=== PATIENT | male | born 1970 | race African-American/Black ===

== ENCOUNTER 2022-01-24 19:45 | Inpatient (IN) ==
[2022-01-24] MEDS ORDERED: ASPIRIN 325 MG TABLET PO STA (20:59)
[2022-01-24] MEDS ORDERED: MORPHINE 2 MG/1 ML SYRINGE IV ONE ×2 (20:59→21:46)
[2022-01-24] MEDS ORDERED: ONDANSETRON ODT 4 MG TABLET PO STA (20:59)
[2022-01-24] MEDS ORDERED: NITROGLYCERIN 2% OINT 1 INCH/GM PACK TOP STA (20:59)
[2022-01-24] MEDS ORDERED: FUROSEMIDE 40 MG/4 ML VIAL IV STA ×2 (20:59→21:19)
[2022-01-24 21:09] LABS: Basophils # 0.1 10*3/uL (0.0-0.2); Basophils % 0.7 % (0.0-0.8); Eosinophils % 0.3 % (0.00-10.9); Hematocrit 55.3 VOL% (42.0-52.0); Hemoglobin 17.3 GM/DL (14.0-18.0); Immature Granulocytes % 0.8 %; Immature Granulocytes Absolute 0.06 #; Lymphocytes # 3.5 10*3/uL (1.4-4.0); Lymphocytes % 47.2 % (21.2-54.2); Mean Corpuscular HGB Conc 31.3 GM/DL (32-36); Mean Corpuscular Volume 84.3 FL (87-102); Mean Platelet Volume 11.7 FL (9.6-12.0); Monocytes # 0.4 10*3/uL (0.11-0.8); Monocytes % 5.9 % (1.7-12.7); Neutrophils % 45.1 % (38.7-73.9); Platelet Count 285 T/CUMM (130-400); Red Blood Count 6.56 MC/CUMM (3.8-5.5); Red Cell Distribution Width 15.4 % (9.3-17.3); White Blood Count 7.3 T/CUMM (4-12)
[2022-01-24 21:21] LABS: INR 1.2; PT Patient Result 12.7 SECS (10.1-12.1)
[2022-01-24 21:28] LABS: Albumin 3.9 G/DL (3.4-5.0); Bilirubin,Total 1.5 MG/DL (0.20-1.00); Calcium 9.1 MG/DL (8.5-10.1); Osmolality,Calculated 289.4 MOS/KG (273-304); Potassium 5.1 MMOL/L (3.5-5.1); Total Protein 7.4 G/DL (6.4-8.2)
[2022-01-24 21:33] LABS: Arterial Base Excess iSTAT -6 MMOL/L (-2.5-2.5); Arterial Bicarbonate iSTAT 15.7 MMOL/L (20-26); Arterial O2 Saturation iSTAT 79 % (95-100); Arterial PCO2 iSTAT 23 MM HG (35-48); Arterial PO2 iSTAT 40 MM HG (80-95); Arterial Total CO2 iSTAT 16 MMO/L (23-27); Arterial pH iSTAT 7.433 (7.35-7.45)
[2022-01-24 21:46] LABS: Arterial Base Excess iSTAT -5 MMOL/L (-2.5-2.5); Arterial Bicarbonate iSTAT 17.2 MMOL/L (20-26); Arterial O2 Saturation iSTAT 80 % (95-100); Arterial PCO2 iSTAT 26 MM HG (35-48); Arterial PO2 iSTAT 42 MM HG (80-95); Arterial Total CO2 iSTAT 18 MMO/L (23-27); Arterial pH iSTAT 7.422 (7.35-7.45)
[2022-01-24] MEDS ORDERED: MAGNESIUM SULF RIDER 4 GM/100 ML PREMIX IV PRN (22:00)
[2022-01-24] MEDS ORDERED: ONDANSETRON 4 MG/2 ML VIAL IV PRN (22:00)
[2022-01-24] MEDS ORDERED: MAGNESIUM SULF RIDER 2 GM/50 ML PREMIX IV PRN (22:00)
[2022-01-24] MEDS ORDERED: METOPROLOL TARTRATE 5 MG/5 ML VIAL IV ONE (22:16)
[2022-01-24] MEDS ORDERED: METOPROLOL TARTRATE 5 MG/5 ML VIAL IV STA (22:17)
[2022-01-24] MEDS: NITROGLYCERIN 2% OINT 1 INCH/GM PACK TOP SCH (22:30)
[2022-01-25] MEDS ORDERED: INFLUENZA VIRUS VACCINE 0.5 ML SYRINGE IM ONE (01:26)
[2022-01-25] MEDS: NITROGLYCERIN 2% OINT 1 INCH/GM PACK TOP SCH ×4 (03:40→21:48)
[2022-01-25 04:20] LABS: Barbiturates Screen,Urine Negative (Negative); Benzodiazepines Screen,Urine Negative (Negative); Cannabinoid Screen,Urine Negative (Negative); Opiate Screen,Urine Positive (Negative); Phencyclidine Screen,Urine Negative (Negative)
[2022-01-25] MEDS ORDERED: LEVALBUTEROL 1.25 MG/3 ML NEB RESP TX PRN (05:05)
[2022-01-25 06:53] LABS: Basophils % 0.3 % (0.0-0.8); Eosinophils % 0.2 % (0.00-10.9); Hematocrit 46.6 VOL% (42.0-52.0); Immature Granulocytes % 0.5 %; Immature Granulocytes Absolute 0.03 #; Lymphocytes # 1.7 10*3/uL (1.4-4.0); Mean Corpuscular Volume 83.2 FL (87-102); Mean Platelet Volume 11.5 FL (9.6-12.0); Monocytes # 0.5 10*3/uL (0.11-0.8); Monocytes % 7.1 % (1.7-12.7); Neutrophils % 64.9 % (38.7-73.9); Red Cell Distribution Width 14.5 % (9.3-17.3); White Blood Count 6.5 T/CUMM (4-12)
[2022-01-25 06:58] LABS: Hemoglobin 14.9 GM/DL (14.0-18.0); Platelet Count 219 T/CUMM (130-400)
[2022-01-25 07:28] LABS: Albumin 2.9 G/DL (3.4-5.0); Bilirubin,Total 1.3 MG/DL (0.20-1.00); Calcium 8.3 MG/DL (8.5-10.1); Osmolality,Calculated 294.1 MOS/KG (273-304); Potassium 4.6 MMOL/L (3.5-5.1); Risk Ratio 2.83; Total Protein 5.1 G/DL (6.4-8.2); VLDL Cholesterol 21.6 MG/DL
[2022-01-25] MEDS ORDERED: FUROSEMIDE 40 MG/4 ML VIAL IV SCH (08:00)
[2022-01-25] MEDS ORDERED: ASCORBIC ACID 500 MG TABLET PO SCH (09:00)
[2022-01-25] MEDS ORDERED: ALBUTEROL 2.5 MG/3 ML NEB RESP TX PRN (09:21)
[2022-01-25] MEDS: PANTOPRAZOLE 40 MG TABLET PO SCH (10:08)
[2022-01-25] MEDS: AMIODARONE 200 MG TABLET PO SCH ×2 (10:08→21:47)
[2022-01-25] MEDS: ASPIRIN 325 MG TABLET PO SCH (10:08)
[2022-01-25] MEDS: APIXABAN 5 MG TABLET PO SCH ×2 (10:08→21:47)
[2022-01-25] MEDS: POTASSIUM CHLORIDE 10 MEQ TABLET PO SCH (10:09)
[2022-01-25 10:42] LABS: ABG PCO2 34.3 MM HG (35-48); ABG PH 7.402 (7.35-7.45)
[2022-01-25] MEDS: FUROSEMIDE 40 MG/4 ML VIAL IV SCH ×3 (11:33→21:50)
[2022-01-25] MEDS ORDERED: METOPROLOL SUCCINATE XL 100 MG TABLET PO SCH (11:38)
[2022-01-25] MEDS: MORPHINE 2 MG/1 ML SYRINGE IV PRN ×3 (11:46→22:14)
[2022-01-25] MEDS: MAGNESIUM CHLORIDE 64 MG TABLET PO SCH (13:51)
[2022-01-25] MEDS: PIPERACILLIN/TAZOBACTAM 3,375 MG in SODIUM CHLORIDE 0.9% 100 ML IV SCH ×2 (13:51→21:46)
[2022-01-25] MEDS: ALBUTEROL/IPRATROPIUM 3 ML NEB RESP TX SCH ×3 (15:50→22:37)
[2022-01-25 16:02] LABS: Arterial Base Excess iSTAT -2 MMOL/L (-2.5-2.5); Arterial O2 Saturation iSTAT 94 % (95-100); Arterial PCO2 iSTAT 32 MM HG (35-48); Arterial PO2 iSTAT 67 MM HG (80-95); Arterial Total CO2 iSTAT 22 MMO/L (23-27); Arterial pH iSTAT 7.428 (7.35-7.45)
[2022-01-25] MEDS: VANCOMYCIN INJ 1,500 MG in SODIUM CHLORIDE 0.9% 500 ML IV SCH (18:04)
[2022-01-25] MEDS ORDERED: DILTIAZEM CD 180 MG CAPSULE PO SCH (21:00)
[2022-01-25] MEDS: ATORVASTATIN 10 MG TABLET PO SCH (21:47)
[2022-01-25] MEDS: DILTIAZEM CD 120 MG CAPSULE PO SCH (21:48)
[2022-01-26] MEDS: NITROGLYCERIN 2% OINT 1 INCH/GM PACK TOP SCH ×4 (05:00→22:53)
[2022-01-26] MEDS: PIPERACILLIN/TAZOBACTAM 3,375 MG in SODIUM CHLORIDE 0.9% 100 ML IV SCH ×3 (05:05→20:34)
[2022-01-26 05:51] LABS: Basophils % 0.8 % (0.0-0.8); Eosinophils % 0.8 % (0.00-10.9); Hematocrit 43.3 VOL% (42.0-52.0); Hemoglobin 13.7 GM/DL (14.0-18.0); Immature Granulocytes % 0.3 %; Immature Granulocytes Absolute 0.01 #; Lymphocytes # 2.1 10*3/uL (1.4-4.0); Mean Corpuscular HGB Conc 31.6 GM/DL (32-36); Mean Corpuscular Volume 83.6 FL (87-102); Mean Platelet Volume 10.8 FL (9.6-12.0); Monocytes # 0.3 10*3/uL (0.11-0.8); Monocytes % 7.1 % (1.7-12.7); Platelet Count 175 T/CUMM (130-400); Red Blood Count 5.18 MC/CUMM (3.8-5.5); Red Cell Distribution Width 14.2 % (9.3-17.3)
[2022-01-26 06:15] LABS: Eosinophils 1 % (0-10); Hypochromia Slight; Lymphocytes 47 % (20-55); Microcytosis Slight; Platelet Estimate Adequate; Total Cells Counted 100
[2022-01-26 06:18] LABS: Calcium 7.8 MG/DL (8.5-10.1); Osmolality,Calculated 288.3 MOS/KG (273-304); Potassium 3.7 MMOL/L (3.5-5.1)
[2022-01-26] MEDS: ALBUTEROL/IPRATROPIUM 3 ML NEB RESP TX SCH ×3 (07:29→19:30)
[2022-01-26] MEDS: POTASSIUM CHLORIDE 10 MEQ TABLET PO SCH (08:59)
[2022-01-26] MEDS: metOLazone 2.5 MG TABLET PO SCH (08:59)
[2022-01-26] MEDS: PANTOPRAZOLE 40 MG TABLET PO SCH (08:59)
[2022-01-26] MEDS: APIXABAN 5 MG TABLET PO SCH ×2 (08:59→20:35)
[2022-01-26] MEDS: AMIODARONE 200 MG TABLET PO SCH ×2 (08:59→20:35)
[2022-01-26] MEDS: MAGNESIUM CHLORIDE 64 MG TABLET PO SCH (08:59)
[2022-01-26] MEDS: FUROSEMIDE 40 MG/4 ML VIAL IV SCH ×2 (08:59→15:57)
[2022-01-26] MEDS: ASCORBIC ACID 500 MG TABLET PO SCH ×2 (08:59→20:35)
[2022-01-26] MEDS: ASPIRIN 325 MG TABLET PO SCH (09:00)
[2022-01-26] MEDS: MORPHINE 2 MG/1 ML SYRINGE IV PRN ×2 (16:41→23:00)
[2022-01-26] MEDS: VANCOMYCIN INJ 1,500 MG in SODIUM CHLORIDE 0.9% 500 ML IV SCH (18:47)
[2022-01-26] MEDS: ATORVASTATIN 10 MG TABLET PO SCH (20:35)
[2022-01-26] MEDS: DILTIAZEM CD 120 MG CAPSULE PO SCH (20:36)
[2022-01-27] MEDS: ALBUTEROL/IPRATROPIUM 3 ML NEB RESP TX SCH ×4 (00:20→19:38)
[2022-01-27 04:06] LABS: Arterial Base Excess iSTAT 5 MMOL/L (-2.5-2.5); Arterial Bicarbonate iSTAT 30.3 MMOL/L (20-26); Arterial O2 Saturation iSTAT 99 % (95-100); Arterial PCO2 iSTAT 44 MM HG (35-48); Arterial PO2 iSTAT 150 MM HG (80-95); Arterial Total CO2 iSTAT 32 MMO/L (23-27); Arterial pH iSTAT 7.447 (7.35-7.45)
[2022-01-27 05:50] LABS: Basophils % 0.5 % (0.0-0.8); Eosinophils # 0.1 10*3/uL (0.0-0.87); Eosinophils % 1.5 % (0.00-10.9); Hematocrit 45.9 VOL% (42.0-52.0); Hemoglobin 14.5 GM/DL (14.0-18.0); Immature Granulocytes % 0.7 %; Immature Granulocytes Absolute 0.03 #; Lymphocytes # 1.8 10*3/uL (1.4-4.0); Lymphocytes % 44.2 % (21.2-54.2); Mean Corpuscular HGB Conc 31.6 GM/DL (32-36); Mean Corpuscular Volume 83.3 FL (87-102); Mean Platelet Volume 11.4 FL (9.6-12.0); Monocytes # 0.3 10*3/uL (0.11-0.8); Monocytes % 7.5 % (1.7-12.7); Neutrophils % 45.6 % (38.7-73.9); Platelet Count 187 T/CUMM (130-400); Red Blood Count 5.51 MC/CUMM (3.8-5.5); Red Cell Distribution Width 14.1 % (9.3-17.3); White Blood Count 4.1 T/CUMM (4-12)
[2022-01-27 06:12] LABS: Calcium 8.4 MG/DL (8.5-10.1); Osmolality,Calculated 287.3 MOS/KG (273-304); Potassium 3.5 MMOL/L (3.5-5.1)
[2022-01-27] MEDS: NITROGLYCERIN 2% OINT 1 INCH/GM PACK TOP SCH ×4 (07:15→22:17)
[2022-01-27] MEDS: PIPERACILLIN/TAZOBACTAM 3,375 MG in SODIUM CHLORIDE 0.9% 100 ML IV SCH ×2 (07:15→13:20)
[2022-01-27] MEDS: MAGNESIUM CHLORIDE 64 MG TABLET PO SCH (09:47)
[2022-01-27] MEDS: FUROSEMIDE 40 MG/4 ML VIAL IV SCH (09:47)
[2022-01-27] MEDS: POTASSIUM CHLORIDE 10 MEQ TABLET PO SCH (09:48)
[2022-01-27] MEDS: metOLazone 2.5 MG TABLET PO SCH (09:48)
[2022-01-27] MEDS: APIXABAN 5 MG TABLET PO SCH ×2 (09:48→21:24)
[2022-01-27] MEDS: PANTOPRAZOLE 40 MG TABLET PO SCH (09:48)
[2022-01-27] MEDS: AMIODARONE 200 MG TABLET PO SCH ×2 (09:48→21:24)
[2022-01-27] MEDS: ASCORBIC ACID 500 MG TABLET PO SCH ×2 (09:48→21:24)
[2022-01-27] MEDS ORDERED: POTASSIUM CHLORIDE 20 MEQ TABLET PO ONE (10:33)
[2022-01-27] MEDS ORDERED: ACETAMINOPHEN 325 MG TABLET PO PRN (11:52)
[2022-01-27] MEDS ORDERED: FUROSEMIDE 40 MG TABLET PO SCH (16:00)
[2022-01-27] MEDS: ATORVASTATIN 10 MG TABLET PO SCH (21:24)
[2022-01-27] MEDS: DILTIAZEM CD 180 MG CAPSULE PO SCH (21:24)
[2022-01-28] MEDS: ALBUTEROL/IPRATROPIUM 3 ML NEB RESP TX SCH ×4 (01:53→19:33)
[2022-01-28] MEDS: NITROGLYCERIN 2% OINT 1 INCH/GM PACK TOP SCH ×4 (04:51→22:00)
[2022-01-28 05:17] LABS: Basophils % 0.6 % (0.0-0.8); Eosinophils % 0.8 % (0.00-10.9); Hematocrit 47.1 VOL% (42.0-52.0); Immature Granulocytes % 0.4 %; Immature Granulocytes Absolute 0.02 #; Lymphocytes % 39.8 % (21.2-54.2); Mean Corpuscular HGB Conc 31.8 GM/DL (32-36); Mean Corpuscular Volume 82.1 FL (87-102); Mean Platelet Volume 11.3 FL (9.6-12.0); Monocytes # 0.3 10*3/uL (0.11-0.8); Monocytes % 6.3 % (1.7-12.7); Neutrophils % 52.1 % (38.7-73.9); Platelet Count 209 T/CUMM (130-400); Red Blood Count 5.74 MC/CUMM (3.8-5.5); Red Cell Distribution Width 13.9 % (9.3-17.3); White Blood Count 5.1 T/CUMM (4-12)
[2022-01-28 05:34] LABS: Calcium 8.2 MG/DL (8.5-10.1); Osmolality,Calculated 291.1 MOS/KG (273-304); Potassium 3.4 MMOL/L (3.5-5.1)
[2022-01-28] MEDS ORDERED: POTASSIUM CHLORIDE 20 MEQ TABLET PO ONE (08:46)
[2022-01-28] MEDS: MAGNESIUM CHLORIDE 64 MG TABLET PO SCH (09:34)
[2022-01-28] MEDS: SPIRONOLACTONE 25 MG TABLET PO SCH (09:34)
[2022-01-28] MEDS: PANTOPRAZOLE 40 MG TABLET PO SCH (09:34)
[2022-01-28] MEDS: AMIODARONE 200 MG TABLET PO SCH ×2 (09:35→20:51)
[2022-01-28] MEDS: SENNA 8.6 MG TABLET PO SCH (09:35)
[2022-01-28] MEDS: APIXABAN 5 MG TABLET PO SCH ×2 (09:35→20:49)
[2022-01-28] MEDS: ASCORBIC ACID 500 MG TABLET PO SCH ×2 (09:35→20:49)
[2022-01-28] MEDS: FUROSEMIDE 80 MG TABLET PO SCH (09:36)
[2022-01-28] MEDS: ATORVASTATIN 10 MG TABLET PO SCH (20:49)
[2022-01-28] MEDS: DILTIAZEM CD 180 MG CAPSULE PO SCH (20:50)
[2022-01-29] MEDS: ALBUTEROL/IPRATROPIUM 3 ML NEB RESP TX SCH ×3 (00:54→12:40)
[2022-01-29] MEDS: NITROGLYCERIN 2% OINT 1 INCH/GM PACK TOP SCH ×3 (05:10→16:15)
[2022-01-29 06:11] LABS: Basophils % 0.5 % (0.0-0.8); Eosinophils # 0.1 10*3/uL (0.0-0.87); Eosinophils % 1.5 % (0.00-10.9); Hemoglobin 15.3 GM/DL (14.0-18.0); Immature Granulocytes % 0.5 %; Immature Granulocytes Absolute 0.02 #; Lymphocytes # 2.1 10*3/uL (1.4-4.0); Lymphocytes % 52.2 % (21.2-54.2); Mean Corpuscular HGB Conc 31.2 GM/DL (32-36); Mean Platelet Volume 10.8 FL (9.6-12.0); Monocytes # 0.3 10*3/uL (0.11-0.8); Monocytes % 6.4 % (1.7-12.7); Neutrophils % 38.9 % (38.7-73.9); Platelet Count 226 T/CUMM (130-400); Red Blood Count 5.83 MC/CUMM (3.8-5.5); Red Cell Distribution Width 14.2 % (9.3-17.3); White Blood Count 4.1 T/CUMM (4-12)
[2022-01-29 06:28] LABS: Calcium 8.8 MG/DL (8.5-10.1); Osmolality,Calculated 289.3 MOS/KG (273-304); Potassium 4.2 MMOL/L (3.5-5.1)
[2022-01-29] MEDS: ASCORBIC ACID 500 MG TABLET PO SCH (09:31)
[2022-01-29] MEDS: MAGNESIUM CHLORIDE 64 MG TABLET PO SCH (09:32)
[2022-01-29] MEDS: PANTOPRAZOLE 40 MG TABLET PO SCH (09:32)
[2022-01-29] MEDS: SPIRONOLACTONE 25 MG TABLET PO SCH (09:32)
[2022-01-29] MEDS: SENNA 8.6 MG TABLET PO SCH (09:32)
[2022-01-29] MEDS: FUROSEMIDE 80 MG TABLET PO SCH (09:32)
[2022-01-29] MEDS: AMIODARONE 200 MG TABLET PO SCH (09:32)
[2022-01-29] MEDS: APIXABAN 5 MG TABLET PO SCH (09:32)
[2022-01-29 17:05] VITALS: BP 127/90
== END 2022-01-29 17:19 | disposition home or self-care (01) | DRG 291 ==
LOC: N.EDINP 19:45 → N.ED 19:45 → SUATTDRO 22:00 → N.TELEN 23:15 → SUATTDRO 01-25 09:19
PROVIDERS: ADMIT Internal Medicine; ATTEND Internal Medicine

== ENCOUNTER 2022-02-11 00:04 | Inpatient (IN) ==
[2022-02-11 00:40] LABS: Basophils % 0.7 % (0.0-0.8); Eosinophils % 0.7 % (0.00-10.9); Hematocrit 47.2 VOL% (42.0-52.0); Hemoglobin 14.7 GM/DL (14.0-18.0); Immature Granulocytes % 0.5 %; Immature Granulocytes Absolute 0.02 #; Lymphocytes # 1.8 10*3/uL (1.4-4.0); Lymphocytes % 43.9 % (21.2-54.2); Mean Corpuscular HGB Conc 31.1 GM/DL (32-36); Mean Corpuscular Volume 82.5 FL (87-102); Mean Platelet Volume 10.8 FL (9.6-12.0); Monocytes # 0.2 10*3/uL (0.11-0.8); Monocytes % 3.9 % (1.7-12.7); Neutrophils % 50.3 % (38.7-73.9); Platelet Count 273 T/CUMM (130-400); Red Blood Count 5.72 MC/CUMM (3.8-5.5); Red Cell Distribution Width 14.8 % (9.3-17.3); White Blood Count 4.1 T/CUMM (4-12)
[2022-02-11 00:51] LABS: INR 1.1; PT Patient Result 11.7 SECS (10.1-12.1); Partial Thromboplastin Time 28.8 SECS (23.7-32.9)
[2022-02-11 01:15] LABS: Albumin 3.4 G/DL (3.4-5.0); Bilirubin,Total 0.5 MG/DL (0.20-1.00); Calcium 8.4 MG/DL (8.5-10.1); Osmolality,Calculated 298.6 MOS/KG (273-304); Potassium 4.2 MMOL/L (3.5-5.1); Total Protein 6.1 G/DL (6.4-8.2)
[2022-02-11] MEDS ORDERED: ASPIRIN CHEW 81 MG TABLET PO ONE (01:54)
[2022-02-11] MEDS ORDERED: AMIODARONE INJ 150 MG in DEXTROSE 5% 100 ML IV ONE (01:57)
[2022-02-11] MEDS ORDERED: AMIODARONE 150 MG/3 ML VIAL ONE (01:58)
[2022-02-11] MEDS ORDERED: ASPIRIN CHEW 81 MG TABLET PO STA (02:08)
[2022-02-11] MEDS ORDERED: AMIODARONE INJ 450 MG in DEXTROSE 5% 241 ML IV SCH (02:30)
[2022-02-11 05:18] LABS: Arterial Base Excess iSTAT -6 MMOL/L (-2.5-2.5); Arterial Bicarbonate iSTAT 17.7 MMOL/L (20-26); Arterial O2 Saturation iSTAT 99 % (95-100); Arterial PCO2 iSTAT 30 MM HG (35-48); Arterial PO2 iSTAT 118 MM HG (80-95); Arterial Total CO2 iSTAT 19 MMO/L (23-27)
[2022-02-11] MEDS ORDERED: NITROGLYCERIN SL 0.4 MG TABLET SL PRN (07:32)
[2022-02-11 07:43] LABS: Basophils % 0.3 % (0.0-0.8); Eosinophils % 0.2 % (0.00-10.9); Hematocrit 48.4 VOL% (42.0-52.0); Hemoglobin 15.1 GM/DL (14.0-18.0); Immature Granulocytes % 0.5 %; Immature Granulocytes Absolute 0.03 #; Lymphocytes # 1.6 10*3/uL (1.4-4.0); Mean Corpuscular HGB Conc 31.2 GM/DL (32-36); Mean Corpuscular Volume 82.9 FL (87-102); Monocytes # 0.2 10*3/uL (0.11-0.8); Monocytes % 3.5 % (1.7-12.7); Neutrophils % 70.5 % (38.7-73.9); Platelet Count 296 T/CUMM (130-400); Red Blood Count 5.84 MC/CUMM (3.8-5.5); Red Cell Distribution Width 14.8 % (9.3-17.3); White Blood Count 6.6 T/CUMM (4-12)
[2022-02-11] MEDS: MORPHINE 2 MG/1 ML SYRINGE IV PRN ×4 (07:48→17:27)
[2022-02-11] MEDS ORDERED: FUROSEMIDE 40 MG/4 ML VIAL IV ONE (07:56)
[2022-02-11 08:09] LABS: Calcium 8.3 MG/DL (8.5-10.1); Osmolality,Calculated 297.7 MOS/KG (273-304); Potassium 4.3 MMOL/L (3.5-5.1)
[2022-02-11] MEDS: ASPIRIN EC 81 MG TABLET PO SCH (08:20)
[2022-02-11] MEDS: APIXABAN 5 MG TABLET PO SCH ×2 (08:20→22:28)
[2022-02-11] MEDS: ASCORBIC ACID 500 MG TABLET PO SCH (08:20)
[2022-02-11] MEDS: AMIODARONE 200 MG TABLET PO SCH ×3 (08:20→22:28)
[2022-02-11] MEDS: DILTIAZEM 60 MG TABLET PO SCH ×4 (08:20→21:57)
[2022-02-11 08:54] LABS: Bacteria,Urine Occasional /HPF (Few); Bilirubin,Urine Negative (Negative); Blood, Urine Negative (Negative); Glucose,Urine (UA) Negative (Negative); Hyaline Casts,Urine 32 /LPF (0-3); Ketones,Urine 5 mg/dL (Negative); Mucus,Urine Occasional /LPF (Occasional); Nitrite,Urine Negative (Negative); Protein,Urine 30 mg/dL (Negative); RBC,Urine 1 /HPF (0-4); Urine Appearance Slightly Hazy (Clear); Urine Color Amber (Yellow)
[2022-02-11] MEDS: DILTIAZEM INJ 100 MG in SODIUM CHLORIDE 0.9% 100 ML IV SCH ×2 (08:59→18:31)
[2022-02-11] MEDS: NITROGLYCERIN 2% OINT 1 INCH/GM PACK TOP SCH ×3 (09:00→22:28)
[2022-02-11] MEDS ORDERED: guaiFENesin 200 MG/10 ML UDCUP PO PRN (09:36)
[2022-02-11] MEDS ORDERED: BENZONATATE 100 MG CAPSULE PO PRN (09:36)
[2022-02-11] MEDS: ALBUTEROL 2.5 MG/3 ML NEB RESP TX PRN ×3 (10:00→16:18)
[2022-02-11 11:34] LABS: High Sensitive Troponin I* 567.1 ng/L (0-78)
[2022-02-11] MEDS: FUROSEMIDE 40 MG/4 ML VIAL IV SCH (16:52)
[2022-02-11] MEDS ORDERED: methylPREDNISolone SOD SUC 125 MG/2 ML VIAL IV ONE (17:38)
[2022-02-11 17:53] LABS: Arterial Base Excess iSTAT -4 MMOL/L (-2.5-2.5); Arterial Bicarbonate iSTAT 19.4 MMOL/L (20-26); Arterial O2 Saturation iSTAT 87 % (95-100); Arterial PCO2 iSTAT 31 MM HG (35-48); Arterial PO2 iSTAT 52 MM HG (80-95); Arterial Total CO2 iSTAT 20 MMO/L (23-27); Arterial pH iSTAT 7.409 (7.35-7.45)
[2022-02-11] MEDS: LORazepam 2 MG/1 ML VIAL IV PRN (17:53)
[2022-02-11] MEDS ORDERED: MIDAZOLAM 10 MG/2 ML VIAL ONE ×2 (18:13→18:28)
[2022-02-11] MEDS ORDERED: ETOMIDATE 20 MG/10 ML VIAL IV ONE ×3 (18:13→18:25)
[2022-02-11] MEDS ORDERED: MIDAZOLAM 2 MG/2 ML VIAL IV ONE ×2 (18:23→18:29)
[2022-02-11] MEDS ORDERED: GLUCAGON 1 MG VIAL IM PRN (18:25)
[2022-02-11] MEDS ORDERED: DEXTROSE 10% 250 ML BAG IV PRN (18:25)
[2022-02-11] MEDS ORDERED: ACETAMINOPHEN 325 MG TABLET PO PRN (18:26)
[2022-02-11] MEDS ORDERED: ROCURONIUM 100 MG/10 ML VIAL IV ONE ×2 (18:27→18:29)
[2022-02-11 18:47] LABS: High Sensitive Troponin I* 571.2 ng/L (0-78)
[2022-02-11] MEDS: ALBUTEROL/IPRATROPIUM 3 ML NEB RESP TX SCH ×2 (19:10→23:55)
[2022-02-11 19:11] LABS: Bilirubin,Urine Negative (Negative); Blood, Urine Negative (Negative); Glucose,Urine (UA) Negative (Negative); Ketones,Urine Negative (Negative); Nitrite,Urine Negative (Negative); Protein,Urine Negative (Negative); RBC,Urine <1 /HPF (0-4); Urine Appearance CLEAR (Clear); Urine Color Straw (Yellow); Urine Specific Gravity 1.006 (1.001-1.035); Urine Urobilinogen < 2.0 eU/dL (<2.0)
[2022-02-11] MEDS: PANTOPRAZOLE 40 MG VIAL IV SCH (19:40)
[2022-02-11 21:26] LABS: Arterial Base Excess iSTAT -5 MMOL/L (-2.5-2.5); Arterial Bicarbonate iSTAT 22.4 MMOL/L (20-26); Arterial O2 Saturation iSTAT 94 % (95-100); Arterial PCO2 iSTAT 49 MM HG (35-48); Arterial PO2 iSTAT 82 MM HG (80-95); Arterial Total CO2 iSTAT 24 MMO/L (23-27); Arterial pH iSTAT 7.269 (7.35-7.45)
[2022-02-11] MEDS: ATORVASTATIN 10 MG TABLET PO SCH (22:28)
[2022-02-11 23:44] LABS: Arterial Base Excess iSTAT -5 MMOL/L (-2.5-2.5); Arterial Bicarbonate iSTAT 21.6 MMOL/L (20-26); Arterial O2 Saturation iSTAT 93 % (95-100); Arterial PCO2 iSTAT 46 MM HG (35-48); Arterial PO2 iSTAT 75 MM HG (80-95); Arterial Total CO2 iSTAT 23 MMO/L (23-27)
[2022-02-12] MEDS: DILTIAZEM INJ 100 MG in SODIUM CHLORIDE 0.9% 100 ML IV SCH (01:08)
[2022-02-12] MEDS: ALBUTEROL/IPRATROPIUM 3 ML NEB RESP TX SCH ×6 (02:42→23:50)
[2022-02-12] MEDS: NITROGLYCERIN 2% OINT 1 INCH/GM PACK TOP SCH ×2 (02:56→08:31)
[2022-02-12 03:40] LABS: Arterial Base Excess iSTAT -6 MMOL/L (-2.5-2.5); Arterial Bicarbonate iSTAT 20.9 MMOL/L (20-26); Arterial O2 Saturation iSTAT 96 % (95-100); Arterial PCO2 iSTAT 45 MM HG (35-48); Arterial PO2 iSTAT 89 MM HG (80-95); Arterial Total CO2 iSTAT 22 MMO/L (23-27); Arterial pH iSTAT 7.279 (7.35-7.45)
[2022-02-12 05:51] LABS: Basophils % 0.3 % (0.0-0.8); Hematocrit 51.7 VOL% (42.0-52.0); Hemoglobin 16.1 GM/DL (14.0-18.0); Immature Granulocytes % 0.4 %; Immature Granulocytes Absolute 0.04 #; Lymphocytes # 0.9 10*3/uL (1.4-4.0); Lymphocytes % 8.4 % (21.2-54.2); Mean Corpuscular HGB Conc 31.1 GM/DL (32-36); Mean Corpuscular Volume 84.1 FL (87-102); Mean Platelet Volume 11.1 FL (9.6-12.0); Monocytes # 0.3 10*3/uL (0.11-0.8); Monocytes % 2.4 % (1.7-12.7); Neutrophils % 88.5 % (38.7-73.9); Platelet Count 285 T/CUMM (130-400); Red Blood Count 6.15 MC/CUMM (3.8-5.5); Red Cell Distribution Width 15.9 % (9.3-17.3); White Blood Count 10.7 T/CUMM (4-12)
[2022-02-12 06:14] LABS: Lymphocytes 9 % (20-55); Total Cells Counted 100
[2022-02-12 06:15] LABS: Platelet Estimate Adequate
[2022-02-12 06:22] LABS: Albumin 2.8 G/DL (3.4-5.0); Bilirubin,Total 0.9 MG/DL (0.20-1.00); Calcium 8.8 MG/DL (8.5-10.1); Potassium 4.7 MMOL/L (3.5-5.1); Total Protein 6.1 G/DL (6.4-8.2)
[2022-02-12] MEDS ORDERED: fentaNYL 100 MCG/2 ML VIAL IV ONE (07:37)
[2022-02-12] MEDS ORDERED: ROCURONIUM 100 MG/10 ML VIAL IV ONE (08:00)
[2022-02-12] MEDS: AMIODARONE 200 MG TABLET PO SCH (08:30)
[2022-02-12] MEDS: APIXABAN 5 MG TABLET PO SCH ×2 (08:30→20:35)
[2022-02-12] MEDS: DILTIAZEM 60 MG TABLET PO SCH ×4 (08:30→22:15)
[2022-02-12] MEDS: ASPIRIN EC 81 MG TABLET PO SCH (08:30)
[2022-02-12] MEDS: fentaNYL INJ 1,250 MCG in SODIUM CHLORIDE 0.9% 225 ML IV PRN ×2 (08:31→20:41)
[2022-02-12] MEDS: ROCURONIUM 500 MG in SODIUM CHLORIDE 0.9% 500 ML IV PRN ×2 (08:34→20:22)
[2022-02-12] MEDS: ASCORBIC ACID 500 MG TABLET PO SCH (08:38)
[2022-02-12] MEDS: FUROSEMIDE 40 MG/4 ML VIAL IV SCH (08:38)
[2022-02-12] MEDS: PIPERACILLIN/TAZOBACTAM 3,375 MG in SODIUM CHLORIDE 0.9% 100 ML IV SCH ×2 (09:38→17:56)
[2022-02-12 09:50] LABS: Arterial Bicarbonate iSTAT 21.3 MMOL/L (20-26); Arterial pH iSTAT 7.21 (7.35-7.45)
[2022-02-12] MEDS ORDERED: SODIUM BICARBONATE 50 MEQ/50 ML VIAL IV ONE ×2 (09:55→10:00)
[2022-02-12] MEDS ORDERED: NOREPINEPHRINE 4 MG/4 ML VIAL IV ONE ×2 (10:01→21:27)
[2022-02-12] MEDS: NOREPINEPHRINE 8 MG in SODIUM CHLORIDE 0.9% 242 ML IV PRN ×3 (10:10→21:36)
[2022-02-12 10:43] LABS: Albumin 2.5 G/DL (3.4-5.0); Bilirubin,Total 0.7 MG/DL (0.20-1.00); Calcium 8.4 MG/DL (8.5-10.1); Osmolality,Calculated 297.1 MOS/KG (273-304); Potassium 4.7 MMOL/L (3.5-5.1); Total Protein 5.6 G/DL (6.4-8.2)
[2022-02-12] MEDS: MIDAZOLAM 100 MG in SODIUM CHLORIDE 0.9% 80 ML IV PRN (10:45)
[2022-02-12] MEDS: SODIUM BICARB INJ 100 MEQ in DEXTROSE 5% 1,000 ML IV SCH (10:54)
[2022-02-12 12:36] LABS: Arterial Bicarbonate iSTAT 23.6 MMOL/L (20-26); Arterial pH iSTAT 7.297 (7.35-7.45)
[2022-02-12] MEDS: HYDROCORTISONE 100 MG VIAL IV SCH ×2 (13:52→20:35)
[2022-02-12] MEDS ORDERED: MAGNESIUM SULF RIDER 4 GM/100 ML PREMIX IV PRN (14:17)
[2022-02-12] MEDS ORDERED: MAGNESIUM SULF RIDER 2 GM/50 ML PREMIX IV PRN (14:17)
[2022-02-12] MEDS: ATORVASTATIN 10 MG TABLET PO SCH (20:34)
[2022-02-12] MEDS: PANTOPRAZOLE 40 MG VIAL IV SCH (20:35)
[2022-02-13] MEDS: SODIUM BICARB INJ 100 MEQ in DEXTROSE 5% 1,000 ML IV SCH ×3 (01:28→16:40)
[2022-02-13] MEDS: PIPERACILLIN/TAZOBACTAM 3,375 MG in SODIUM CHLORIDE 0.9% 100 ML IV SCH (01:28)
[2022-02-13] MEDS: NOREPINEPHRINE 8 MG in SODIUM CHLORIDE 0.9% 242 ML IV PRN ×3 (02:25→21:44)
[2022-02-13] MEDS: ALBUTEROL/IPRATROPIUM 3 ML NEB RESP TX SCH ×6 (02:47→23:09)
[2022-02-13 03:47] LABS: Basophils % 0.1 % (0.0-0.8); Hematocrit 45.5 VOL% (42.0-52.0); Hemoglobin 14.2 GM/DL (14.0-18.0); Immature Granulocytes % 0.7 %; Immature Granulocytes Absolute 0.06 #; Lymphocytes # 0.5 10*3/uL (1.4-4.0); Lymphocytes % 5.6 % (21.2-54.2); Mean Corpuscular HGB Conc 31.2 GM/DL (32-36); Mean Corpuscular Volume 82.6 FL (87-102); Mean Platelet Volume 11.5 FL (9.6-12.0); Monocytes # 0.6 10*3/uL (0.11-0.8); Monocytes % 6.2 % (1.7-12.7); Neutrophils % 87.4 % (38.7-73.9); Platelet Count 302 T/CUMM (130-400); Red Blood Count 5.51 MC/CUMM (3.8-5.5); Red Cell Distribution Width 15.1 % (9.3-17.3); White Blood Count 9.1 T/CUMM (4-12)
[2022-02-13 04:03] LABS: Albumin 2.5 G/DL (3.4-5.0); Bilirubin,Total 1.4 MG/DL (0.20-1.00); Calcium 8.7 MG/DL (8.5-10.1); Osmolality,Calculated 300.1 MOS/KG (273-304); Potassium 3.8 MMOL/L (3.5-5.1); Total Protein 6.1 G/DL (6.4-8.2)
[2022-02-13] MEDS: HYDROCORTISONE 100 MG VIAL IV SCH ×3 (04:05→20:22)
[2022-02-13] MEDS ORDERED: METOPROLOL TARTRATE 5 MG/5 ML VIAL IV ONE ×2 (04:15→04:20)
[2022-02-13 05:09] LABS: Arterial Base Excess iSTAT 2 MMOL/L (-2.5-2.5); Arterial Bicarbonate iSTAT 29.7 MMOL/L (20-26); Arterial O2 Saturation iSTAT 100 % (95-100); Arterial PCO2 iSTAT 56 MM HG (35-48); Arterial PO2 iSTAT 417 MM HG (80-95); Arterial Total CO2 iSTAT 31 MMO/L (23-27); Arterial pH iSTAT 7.331 (7.35-7.45)
[2022-02-13] MEDS: MEROPENEM 500 MG in SODIUM CHLORIDE 0.9% 100 ML IV SCH ×3 (07:30→23:04)
[2022-02-13] MEDS ORDERED: AMIODARONE 200 MG TABLET PO SCH (09:00)
[2022-02-13] MEDS: APIXABAN 5 MG TABLET PO SCH ×2 (09:11→20:21)
[2022-02-13] MEDS: DILTIAZEM 60 MG TABLET PO SCH ×3 (09:11→20:21)
[2022-02-13] MEDS: ASCORBIC ACID 500 MG TABLET PO SCH (09:11)
[2022-02-13] MEDS: ASPIRIN EC 81 MG TABLET PO SCH (09:11)
[2022-02-13] MEDS: MIDAZOLAM 100 MG in SODIUM CHLORIDE 0.9% 80 ML IV PRN (09:28)
[2022-02-13] MEDS: fentaNYL INJ 1,250 MCG in SODIUM CHLORIDE 0.9% 225 ML IV PRN ×2 (09:32→22:58)
[2022-02-13] MEDS: ROCURONIUM 500 MG in SODIUM CHLORIDE 0.9% 500 ML IV PRN (11:04)
[2022-02-13] MEDS ORDERED: MINERAL OIL/PETROLATUM OPH OINT 3.5 GM TUBE BOTH EYES SCH (15:00)
[2022-02-13] MEDS: PANTOPRAZOLE 40 MG VIAL IV SCH (20:21)
[2022-02-13] MEDS: ATORVASTATIN 10 MG TABLET PO SCH (20:22)
[2022-02-14] MEDS: ALBUTEROL/IPRATROPIUM 3 ML NEB RESP TX SCH ×6 (02:20→22:40)
[2022-02-14 03:58] LABS: Arterial Base Excess iSTAT 10 MMOL/L (-2.5-2.5); Arterial Bicarbonate iSTAT 34.3 MMOL/L (20-26); Arterial O2 Saturation iSTAT 99 % (95-100); Arterial PCO2 iSTAT 44 MM HG (35-48); Arterial PO2 iSTAT 117 MM HG (80-95); Arterial Total CO2 iSTAT 36 MMO/L (23-27); Arterial pH iSTAT 7.496 (7.35-7.45)
[2022-02-14 04:09] LABS: Basophils % 0.1 % (0.0-0.8); Hematocrit 39.3 VOL% (42.0-52.0); Hemoglobin 12.4 GM/DL (14.0-18.0); Immature Granulocytes % 0.8 %; Immature Granulocytes Absolute 0.08 #; Lymphocytes # 0.4 10*3/uL (1.4-4.0); Lymphocytes % 3.8 % (21.2-54.2); Mean Corpuscular HGB Conc 31.6 GM/DL (32-36); Mean Corpuscular Volume 81.4 FL (87-102); Mean Platelet Volume 11.3 FL (9.6-12.0); Monocytes # 0.5 10*3/uL (0.11-0.8); Monocytes % 4.5 % (1.7-12.7); Neutrophils % 90.8 % (38.7-73.9); Platelet Count 240 T/CUMM (130-400); Red Blood Count 4.83 MC/CUMM (3.8-5.5); Red Cell Distribution Width 15.1 % (9.3-17.3); White Blood Count 10.1 T/CUMM (4-12)
[2022-02-14 04:27] LABS: Calcium 8.7 MG/DL (8.5-10.1); Osmolality,Calculated 297.7 MOS/KG (273-304); Potassium 3.8 MMOL/L (3.5-5.1)
[2022-02-14 04:29] LABS: Lymphocytes 6 % (20-55); Nucleated Red Blood Cells 2 /100 WBC (0-5); Total Cells Counted 100
[2022-02-14 04:32] LABS: Microcytosis Slight; Platelet Estimate Normal; Target Cells Slight
[2022-02-14] MEDS: SODIUM BICARB INJ 100 MEQ in DEXTROSE 5% 1,000 ML IV SCH ×2 (04:36→06:23)
[2022-02-14] MEDS: HYDROCORTISONE 100 MG VIAL IV SCH ×3 (04:37→20:29)
[2022-02-14] MEDS: MEROPENEM 500 MG in SODIUM CHLORIDE 0.9% 100 ML IV SCH ×3 (06:20→22:59)
[2022-02-14] MEDS: AMIODARONE 200 MG TABLET PO SCH ×2 (08:50→20:28)
[2022-02-14] MEDS: DILTIAZEM 60 MG TABLET PO SCH ×3 (08:50→20:28)
[2022-02-14] MEDS: APIXABAN 5 MG TABLET PO SCH ×2 (08:50→20:28)
[2022-02-14] MEDS: ASPIRIN EC 81 MG TABLET PO SCH (08:50)
[2022-02-14] MEDS: ASCORBIC ACID 500 MG TABLET PO SCH (08:50)
[2022-02-14] MEDS: MIDAZOLAM 100 MG in SODIUM CHLORIDE 0.9% 80 ML IV PRN (09:20)
[2022-02-14] MEDS: fentaNYL INJ 1,250 MCG in SODIUM CHLORIDE 0.9% 225 ML IV PRN (12:40)
[2022-02-14] MEDS: NOREPINEPHRINE 8 MG in SODIUM CHLORIDE 0.9% 242 ML IV PRN (15:15)
[2022-02-14] MEDS: ATORVASTATIN 10 MG TABLET PO SCH (20:28)
[2022-02-14] MEDS: PANTOPRAZOLE 40 MG VIAL IV SCH (20:29)
[2022-02-15] MEDS: ALBUTEROL/IPRATROPIUM 3 ML NEB RESP TX SCH ×6 (03:33→23:30)
[2022-02-15 04:18] LABS: ABG HCO3 31.7 MMOL/L (20-26); ABG Oxygen Saturation 95.2 % (95-100); ABG PCO2 40.8 MM HG (35-48); ABG PH 7.502 (7.35-7.45); ABG TCO2 27.9 MMOL/L (23-27)
[2022-02-15] MEDS: HYDROCORTISONE 100 MG VIAL IV SCH ×3 (04:18→15:21)
[2022-02-15 04:25] LABS: Basophils % 0.1 % (0.0-0.8); Hematocrit 39.9 VOL% (42.0-52.0); Hemoglobin 12.4 GM/DL (14.0-18.0); Immature Granulocytes Absolute 0.09 #; Lymphocytes # 0.7 10*3/uL (1.4-4.0); Lymphocytes % 7.9 % (21.2-54.2); Mean Corpuscular HGB Conc 31.1 GM/DL (32-36); Mean Corpuscular Volume 83.8 FL (87-102); Mean Platelet Volume 11.2 FL (9.6-12.0); Monocytes # 0.5 10*3/uL (0.11-0.8); Monocytes % 5.1 % (1.7-12.7); Neutrophils % 85.9 % (38.7-73.9); Platelet Count 240 T/CUMM (130-400); Red Blood Count 4.76 MC/CUMM (3.8-5.5); Red Cell Distribution Width 15.3 % (9.3-17.3)
[2022-02-15 04:35] LABS: Calcium 8.6 MG/DL (8.5-10.1); Osmolality,Calculated 298.6 MOS/KG (273-304); Potassium 4.1 MMOL/L (3.5-5.1)
[2022-02-15] MEDS: MEROPENEM 500 MG in SODIUM CHLORIDE 0.9% 100 ML IV SCH ×3 (06:22→23:57)
[2022-02-15] MEDS ORDERED: FUROSEMIDE 40 MG/4 ML VIAL IV ONE (08:13)
[2022-02-15] MEDS: MIDAZOLAM 100 MG in SODIUM CHLORIDE 0.9% 80 ML IV PRN ×2 (08:56→20:10)
[2022-02-15] MEDS: AMIODARONE 200 MG TABLET PO SCH ×2 (08:57→20:28)
[2022-02-15] MEDS: ASCORBIC ACID 500 MG TABLET PO SCH (08:57)
[2022-02-15] MEDS: DILTIAZEM 60 MG TABLET PO SCH ×3 (08:57→20:27)
[2022-02-15] MEDS: ASPIRIN EC 81 MG TABLET PO SCH (08:58)
[2022-02-15] MEDS: APIXABAN 5 MG TABLET PO SCH ×2 (08:58→20:28)
[2022-02-15] MEDS ORDERED: SCOPOLAMINE 1.5 MG PATCH TRANSDERM SCH (14:30)
[2022-02-15] MEDS: LEVOFLOXACIN INJ 500 MG/100 ML PREMIX IV SCH (14:59)
[2022-02-15] MEDS ORDERED: FUROSEMIDE 40 MG/4 ML VIAL IV SCH (16:00)
[2022-02-15] MEDS: fentaNYL INJ 1,250 MCG in SODIUM CHLORIDE 0.9% 225 ML IV PRN (17:13)
[2022-02-15] MEDS: NOREPINEPHRINE 8 MG in SODIUM CHLORIDE 0.9% 242 ML IV PRN (18:49)
[2022-02-15] MEDS: PANTOPRAZOLE 40 MG VIAL IV SCH (20:13)
[2022-02-15] MEDS: ATORVASTATIN 10 MG TABLET PO SCH (20:28)
[2022-02-16] MEDS: fentaNYL INJ 1,250 MCG in SODIUM CHLORIDE 0.9% 225 ML IV PRN ×3 (00:12→22:47)
[2022-02-16] MEDS: HYDROCORTISONE 100 MG VIAL IV SCH ×3 (00:16→20:16)
[2022-02-16] MEDS: ALBUTEROL/IPRATROPIUM 3 ML NEB RESP TX SCH ×6 (03:00→22:49)
[2022-02-16 03:43] LABS: ABG Base Excess 10.9 MMOL/L (-2.5-2.5); ABG HCO3 34.6 MMOL/L (20-26); ABG Oxygen Saturation 94.7 % (95-100); ABG PCO2 50.6 MM HG (35-48); ABG PH 7.468 (7.35-7.45); ABG TCO2 31.8 MMOL/L (23-27)
[2022-02-16 03:47] LABS: Basophils % 0.2 % (0.0-0.8); Hematocrit 41.8 VOL% (42.0-52.0); Hemoglobin 12.8 GM/DL (14.0-18.0); Immature Granulocytes % 0.8 %; Immature Granulocytes Absolute 0.05 #; Lymphocytes # 0.7 10*3/uL (1.4-4.0); Lymphocytes % 11.6 % (21.2-54.2); Mean Corpuscular HGB Conc 30.6 GM/DL (32-36); Mean Corpuscular Volume 83.9 FL (87-102); Mean Platelet Volume 10.9 FL (9.6-12.0); Monocytes # 0.3 10*3/uL (0.11-0.8); Monocytes % 5.3 % (1.7-12.7); Neutrophils % 82.1 % (38.7-73.9); Platelet Count 241 T/CUMM (130-400); Red Blood Count 4.98 MC/CUMM (3.8-5.5); Red Cell Distribution Width 15.2 % (9.3-17.3); White Blood Count 6.4 T/CUMM (4-12)
[2022-02-16 03:59] LABS: Calcium 8.7 MG/DL (8.5-10.1); Osmolality,Calculated 297.7 MOS/KG (273-304); Potassium 4.2 MMOL/L (3.5-5.1)
[2022-02-16] MEDS: MEROPENEM 500 MG in SODIUM CHLORIDE 0.9% 100 ML IV SCH ×3 (06:01→22:18)
[2022-02-16] MEDS: MIDAZOLAM 100 MG in SODIUM CHLORIDE 0.9% 80 ML IV PRN (06:26)
[2022-02-16] MEDS: FUROSEMIDE 40 MG/4 ML VIAL IV SCH (08:23)
[2022-02-16] MEDS: AMIODARONE 200 MG TABLET PO SCH ×2 (08:48→20:16)
[2022-02-16] MEDS: ASCORBIC ACID 500 MG TABLET PO SCH (08:48)
[2022-02-16] MEDS: ASPIRIN EC 81 MG TABLET PO SCH (08:48)
[2022-02-16] MEDS: DILTIAZEM 60 MG TABLET PO SCH ×3 (08:48→20:16)
[2022-02-16] MEDS: APIXABAN 5 MG TABLET PO SCH ×2 (08:48→20:16)
[2022-02-16] MEDS: LEVOFLOXACIN INJ 500 MG/100 ML PREMIX IV SCH (15:06)
[2022-02-16] MEDS: ATORVASTATIN 10 MG TABLET PO SCH (20:16)
[2022-02-16] MEDS: ZINC OXIDE PASTE 113 GM TUBE TOP SCH (20:16)
[2022-02-16] MEDS: PANTOPRAZOLE 40 MG VIAL IV SCH (20:16)
[2022-02-17] MEDS: LORazepam 2 MG/1 ML VIAL IV PRN (00:27)
[2022-02-17] MEDS: ALBUTEROL/IPRATROPIUM 3 ML NEB RESP TX SCH ×6 (03:19→23:58)
[2022-02-17 03:38] LABS: Basophils % 0.2 % (0.0-0.8); Eosinophils % 0.2 % (0.00-10.9); Immature Granulocytes % 0.9 %; Immature Granulocytes Absolute 0.06 #; Lymphocytes # 1.1 10*3/uL (1.4-4.0); Lymphocytes % 17.5 % (21.2-54.2); Mean Corpuscular Volume 83.3 FL (87-102); Mean Platelet Volume 10.7 FL (9.6-12.0); Monocytes # 0.5 10*3/uL (0.11-0.8); Monocytes % 7.8 % (1.7-12.7); Neutrophils % 73.4 % (38.7-73.9); Platelet Count 234 T/CUMM (130-400); Red Blood Count 5.04 MC/CUMM (3.8-5.5); Red Cell Distribution Width 15.1 % (9.3-17.3); White Blood Count 6.4 T/CUMM (4-12)
[2022-02-17 03:38] LABS: ABG Base Excess 10.9 MMOL/L (-2.5-2.5); ABG HCO3 34.5 MMOL/L (20-26); ABG Oxygen Saturation 94.2 % (95-100); ABG PCO2 47.9 MM HG (35-48); ABG PH 7.486 (7.35-7.45); ABG PO2 91.7 MM HG (80-95); ABG TCO2 31.2 MMOL/L (23-27)
[2022-02-17 03:53] LABS: Calcium 8.8 MG/DL (8.5-10.1); Osmolality,Calculated 300.4 MOS/KG (273-304); Potassium 4.2 MMOL/L (3.5-5.1)
[2022-02-17] MEDS: MIDAZOLAM 100 MG in SODIUM CHLORIDE 0.9% 80 ML IV PRN (04:48)
[2022-02-17] MEDS: NOREPINEPHRINE 8 MG in SODIUM CHLORIDE 0.9% 242 ML IV PRN (05:48)
[2022-02-17] MEDS: MEROPENEM 500 MG in SODIUM CHLORIDE 0.9% 100 ML IV SCH ×3 (06:00→23:08)
[2022-02-17] MEDS: HYDROCORTISONE 100 MG VIAL IV SCH ×2 (08:16→20:00)
[2022-02-17] MEDS: ASPIRIN EC 81 MG TABLET PO SCH (08:17)
[2022-02-17] MEDS: FUROSEMIDE 40 MG/4 ML VIAL IV SCH (08:17)
[2022-02-17] MEDS: DILTIAZEM 60 MG TABLET PO SCH ×3 (08:17→20:00)
[2022-02-17] MEDS: ASCORBIC ACID 500 MG TABLET PO SCH (08:18)
[2022-02-17] MEDS: APIXABAN 5 MG TABLET PO SCH ×2 (08:18→20:01)
[2022-02-17] MEDS: AMIODARONE 200 MG TABLET PO SCH ×2 (08:18→20:01)
[2022-02-17] MEDS: ZINC OXIDE PASTE 113 GM TUBE TOP SCH ×2 (08:19→20:01)
[2022-02-17 08:55] LABS: HIV Antigen/Antibody Result Nonreactive (Nonreactive)
[2022-02-17] MEDS: MORPHINE 2 MG/1 ML SYRINGE IV PRN (13:10)
[2022-02-17] MEDS: LEVOFLOXACIN INJ 500 MG/100 ML PREMIX IV SCH (15:08)
[2022-02-17] MEDS: PANTOPRAZOLE 40 MG VIAL IV SCH (20:00)
[2022-02-17] MEDS: ATORVASTATIN 10 MG TABLET PO SCH (20:01)
[2022-02-18 03:26] LABS: ABG Base Excess 8.8 MMOL/L (-2.5-2.5); ABG HCO3 32.4 MMOL/L (20-26); ABG Oxygen Saturation 93.1 % (95-100); ABG PCO2 45.1 MM HG (35-48); ABG PO2 81.5 MM HG (80-95); ABG TCO2 28.8 MMOL/L (23-27)
[2022-02-18 03:33] LABS: Basophils % 0.2 % (0.0-0.8); Hematocrit 44.2 VOL% (42.0-52.0); Hemoglobin 13.8 GM/DL (14.0-18.0); Immature Granulocytes % 1.4 %; Immature Granulocytes Absolute 0.07 #; Lymphocytes # 0.9 10*3/uL (1.4-4.0); Lymphocytes % 17.3 % (21.2-54.2); Mean Corpuscular HGB Conc 31.2 GM/DL (32-36); Mean Corpuscular Volume 83.4 FL (87-102); Mean Platelet Volume 10.8 FL (9.6-12.0); Monocytes # 0.3 10*3/uL (0.11-0.8); Monocytes % 5.1 % (1.7-12.7); Platelet Count 191 T/CUMM (130-400); Red Cell Distribution Width 14.9 % (9.3-17.3); White Blood Count 5.1 T/CUMM (4-12)
[2022-02-18] MEDS: ALBUTEROL/IPRATROPIUM 3 ML NEB RESP TX SCH ×5 (03:40→20:24)
[2022-02-18 03:45] LABS: Osmolality,Calculated 296.8 MOS/KG (273-304); Potassium 3.7 MMOL/L (3.5-5.1)
[2022-02-18] MEDS: MEROPENEM 500 MG in SODIUM CHLORIDE 0.9% 100 ML IV SCH ×3 (06:00→23:20)
[2022-02-18] MEDS: ZINC OXIDE PASTE 113 GM TUBE TOP SCH ×2 (09:40→21:00)
[2022-02-18] MEDS: APIXABAN 5 MG TABLET PO SCH ×2 (09:40→20:30)
[2022-02-18] MEDS: FUROSEMIDE 40 MG/4 ML VIAL IV SCH (09:40)
[2022-02-18] MEDS: DILTIAZEM 60 MG TABLET PO SCH ×3 (09:40→20:30)
[2022-02-18] MEDS: ASCORBIC ACID 500 MG TABLET PO SCH (09:40)
[2022-02-18] MEDS: AMIODARONE 200 MG TABLET PO SCH ×2 (09:40→20:30)
[2022-02-18] MEDS: ASPIRIN EC 81 MG TABLET PO SCH (09:40)
[2022-02-18] MEDS: HYDROCORTISONE 100 MG VIAL IV SCH ×2 (09:41→22:36)
[2022-02-18] MEDS: ATORVASTATIN 10 MG TABLET PO SCH (20:30)
[2022-02-19] MEDS: ALBUTEROL/IPRATROPIUM 3 ML NEB RESP TX SCH ×6 (00:32→19:42)
[2022-02-19] MEDS: MORPHINE 2 MG/1 ML SYRINGE IV PRN ×3 (00:59→21:01)
[2022-02-19 05:12] LABS: Eosinophils % 0.4 % (0.00-10.9); Hematocrit 43.3 VOL% (42.0-52.0); Hemoglobin 13.3 GM/DL (14.0-18.0); Immature Granulocytes Absolute 0.05 #; Lymphocytes # 1.7 10*3/uL (1.4-4.0); Lymphocytes % 32.3 % (21.2-54.2); Mean Corpuscular HGB Conc 30.7 GM/DL (32-36); Mean Platelet Volume 11.6 FL (9.6-12.0); Monocytes # 0.4 10*3/uL (0.11-0.8); Neutrophils % 59.3 % (38.7-73.9); Platelet Count 202 T/CUMM (130-400); Red Blood Count 5.22 MC/CUMM (3.8-5.5); Red Cell Distribution Width 14.7 % (9.3-17.3); White Blood Count 5.1 T/CUMM (4-12)
[2022-02-19 05:38] LABS: Calcium 8.7 MG/DL (8.5-10.1); Osmolality,Calculated 297.6 MOS/KG (273-304); Potassium 3.5 MMOL/L (3.5-5.1)
[2022-02-19] MEDS: MEROPENEM 500 MG in SODIUM CHLORIDE 0.9% 100 ML IV SCH ×3 (07:48→22:22)
[2022-02-19] MEDS: ASPIRIN EC 81 MG TABLET PO SCH (10:07)
[2022-02-19] MEDS: ASCORBIC ACID 500 MG TABLET PO SCH (10:07)
[2022-02-19] MEDS: PANTOPRAZOLE 40 MG TABLET PO SCH (10:07)
[2022-02-19] MEDS: AMIODARONE 200 MG TABLET PO SCH ×2 (10:08→20:33)
[2022-02-19] MEDS: APIXABAN 5 MG TABLET PO SCH ×2 (10:08→20:33)
[2022-02-19] MEDS: LEVOFLOXACIN 750 MG TABLET PO SCH (10:08)
[2022-02-19] MEDS: FUROSEMIDE 40 MG/4 ML VIAL IV SCH (10:12)
[2022-02-19] MEDS: HYDROCORTISONE 100 MG VIAL IV SCH ×2 (10:12→20:51)
[2022-02-19] MEDS: DILTIAZEM 60 MG TABLET PO SCH ×3 (10:17→20:33)
[2022-02-19] MEDS: ZINC OXIDE PASTE 113 GM TUBE TOP SCH ×2 (15:07→20:33)
[2022-02-19] MEDS: ATORVASTATIN 10 MG TABLET PO SCH (20:33)
[2022-02-20] MEDS: ALBUTEROL/IPRATROPIUM 3 ML NEB RESP TX SCH ×6 (00:06→18:59)
[2022-02-20] MEDS: MEROPENEM 500 MG in SODIUM CHLORIDE 0.9% 100 ML IV SCH ×3 (06:37→22:00)
[2022-02-20 08:26] LABS: Basophils % 0.2 % (0.0-0.8); Eosinophils % 0.8 % (0.00-10.9); Hemoglobin 13.9 GM/DL (14.0-18.0); Immature Granulocytes % 1.6 %; Immature Granulocytes Absolute 0.08 #; Lymphocytes % 40.6 % (21.2-54.2); Mean Corpuscular HGB Conc 30.9 GM/DL (32-36); Mean Corpuscular Volume 83.5 FL (87-102); Mean Platelet Volume 10.9 FL (9.6-12.0); Monocytes # 0.3 10*3/uL (0.11-0.8); Monocytes % 6.5 % (1.7-12.7); Neutrophils % 50.3 % (38.7-73.9); Platelet Count 207 T/CUMM (130-400); Red Blood Count 5.39 MC/CUMM (3.8-5.5); Red Cell Distribution Width 14.7 % (9.3-17.3); White Blood Count 4.9 T/CUMM (4-12)
[2022-02-20 08:48] LABS: Albumin 2.3 G/DL (3.4-5.0); Bilirubin,Total 1.2 MG/DL (0.20-1.00); Calcium 8.7 MG/DL (8.5-10.1); Osmolality,Calculated 289.1 MOS/KG (273-304); Potassium 3.4 MMOL/L (3.5-5.1); Total Protein 5.7 G/DL (6.4-8.2)
[2022-02-20] MEDS: FUROSEMIDE 40 MG/4 ML VIAL IV SCH (09:32)
[2022-02-20] MEDS: APIXABAN 5 MG TABLET PO SCH ×2 (09:33→21:25)
[2022-02-20] MEDS: PANTOPRAZOLE 40 MG TABLET PO SCH (09:33)
[2022-02-20] MEDS: LEVOFLOXACIN 750 MG TABLET PO SCH (09:33)
[2022-02-20] MEDS: AMIODARONE 200 MG TABLET PO SCH ×2 (09:34→21:24)
[2022-02-20] MEDS: ASPIRIN EC 81 MG TABLET PO SCH (09:34)
[2022-02-20] MEDS: HYDROCORTISONE 100 MG VIAL IV SCH (09:36)
[2022-02-20] MEDS: ZINC OXIDE PASTE 113 GM TUBE TOP SCH ×2 (09:38→21:30)
[2022-02-20] MEDS: ASCORBIC ACID 500 MG TABLET PO SCH (09:40)
[2022-02-20] MEDS: DILTIAZEM 60 MG TABLET PO SCH (09:42)
[2022-02-20] MEDS ORDERED: POTASSIUM CHLORIDE 20 MEQ TABLET PO ONE (11:58)
[2022-02-20] MEDS ORDERED: SPIRONOLACTONE 25 MG TABLET PO SCH (12:30)
[2022-02-20] MEDS ORDERED: METOPROLOL TARTRATE 5 MG/5 ML VIAL IV ONE (12:31)
[2022-02-20] MEDS: MORPHINE 2 MG/1 ML SYRINGE IV PRN ×2 (15:10→21:30)
[2022-02-20] MEDS ORDERED: DILTIAZEM CD 180 MG CAPSULE PO SCH (21:00)
[2022-02-20] MEDS: DILTIAZEM CD 180 MG CAPSULE PO SCH (21:25)
[2022-02-20] MEDS: ATORVASTATIN 10 MG TABLET PO SCH (21:26)
[2022-02-21] MEDS: ALBUTEROL/IPRATROPIUM 3 ML NEB RESP TX SCH ×5 (00:05→14:45)
[2022-02-21] MEDS: MEROPENEM 500 MG in SODIUM CHLORIDE 0.9% 100 ML IV SCH ×2 (06:00→14:42)
[2022-02-21 06:08] LABS: Basophils % 0.2 % (0.0-0.8); Eosinophils # 0.1 10*3/uL (0.0-0.87); Eosinophils % 1.1 % (0.00-10.9); Hemoglobin 13.1 GM/DL (14.0-18.0); Immature Granulocytes % 1.9 %; Lymphocytes # 2.8 10*3/uL (1.4-4.0); Lymphocytes % 52.4 % (21.2-54.2); Mean Corpuscular HGB Conc 31.2 GM/DL (32-36); Mean Corpuscular Volume 83.3 FL (87-102); Mean Platelet Volume 10.5 FL (9.6-12.0); Monocytes # 0.4 10*3/uL (0.11-0.8); Monocytes % 6.5 % (1.7-12.7); Neutrophils % 37.9 % (38.7-73.9); Platelet Count 208 T/CUMM (130-400); Red Blood Count 5.04 MC/CUMM (3.8-5.5); Red Cell Distribution Width 14.7 % (9.3-17.3); White Blood Count 5.4 T/CUMM (4-12)
[2022-02-21 06:26] LABS: Calcium 8.6 MG/DL (8.5-10.1); Osmolality,Calculated 293.7 MOS/KG (273-304); Potassium 4.1 MMOL/L (3.5-5.1)
[2022-02-21 06:34] LABS: Hypochromia Slight; Lymphocytes 53 % (20-55); Microcytosis Slight; Platelet Estimate Adequate; Total Cells Counted 100
[2022-02-21] MEDS ORDERED: FUROSEMIDE 80 MG TABLET PO SCH (09:00)
[2022-02-21] MEDS: DILTIAZEM CD 180 MG CAPSULE PO SCH (09:07)
[2022-02-21] MEDS: ASPIRIN EC 81 MG TABLET PO SCH (09:07)
[2022-02-21] MEDS: ZINC OXIDE PASTE 113 GM TUBE TOP SCH (09:08)
[2022-02-21] MEDS: APIXABAN 5 MG TABLET PO SCH (09:08)
[2022-02-21] MEDS: AMIODARONE 200 MG TABLET PO SCH (09:08)
[2022-02-21] MEDS: PANTOPRAZOLE 40 MG TABLET PO SCH (09:09)
[2022-02-21] MEDS: ASCORBIC ACID 500 MG TABLET PO SCH (09:09)
[2022-02-21] MEDS: LEVOFLOXACIN 750 MG TABLET PO SCH (09:09)
[2022-02-21] MEDS ORDERED: AMIODARONE 200 MG TABLET PO ONE (09:18)
[2022-02-21 12:19] VITALS: BP 122/86
[2022-02-21] MEDS ORDERED: AMIODARONE 200 MG TABLET PO SCH (21:00)
== END 2022-02-21 16:36 | disposition home or self-care (01) | DRG 870 ==
LOC: N.ED 00:04 → SUATTDRO 04:22 → N.EDINP 04:22 → N.ICU 05:07 → N.TELES 02-18 16:16
PROVIDERS: ADMIT Internal Medicine; ATTEND Internal Medicine

== ENCOUNTER 2022-05-13 16:34 | Inpatient (IN) ==
[2022-05-13] MEDS ORDERED: ASPIRIN 325 MG TABLET PO STA (17:21)
[2022-05-13] MEDS ORDERED: DILTIAZEM 50 MG/10 ML VIAL IV STA (17:23)
[2022-05-13] MEDS ORDERED: DILTIAZEM 100 MG VIAL.ADD IV ONE (17:37)
[2022-05-13 17:44] LABS: Basophils % 0.5 % (0.0-0.8); Eosinophils # 0.1 10*3/uL (0.0-0.87); Eosinophils % 1.1 % (0.00-10.9); Hematocrit 48.2 VOL% (42.0-52.0); Hemoglobin 14.9 GM/DL (14.0-18.0); Immature Granulocytes % 0.5 %; Immature Granulocytes Absolute 0.03 #; Lymphocytes # 4.3 10*3/uL (1.4-4.0); Lymphocytes % 68.3 % (21.2-54.2); Mean Corpuscular HGB Conc 30.9 GM/DL (32-36); Mean Corpuscular Volume 78.5 FL (87-102); Mean Platelet Volume 11.4 FL (9.6-12.0); Monocytes # 0.4 10*3/uL (0.11-0.8); Monocytes % 6.7 % (1.7-12.7); NRBC # 0.02 10*3/uL; Neutrophils % 22.9 % (38.7-73.9); Platelet Count 346 T/CUMM (130-400); Red Blood Count 6.14 MC/CUMM (3.8-5.5); Red Cell Distribution Width 17.6 % (9.3-17.3); White Blood Count 6.28 T/CUMM (4-12)
[2022-05-13 18:03] LABS: Albumin 3.5 G/DL (3.4-5.0); Calcium 8.9 MG/DL (8.5-10.1); Osmolality,Calculated 299.1 MOS/KG (273-304); Potassium 4.7 MMOL/L (3.5-5.1); Total Protein 5.7 G/DL (6.4-8.2)
[2022-05-13] MEDS ORDERED: DIGOXIN 0.5 MG/2 ML AMP IV STA (18:24)
[2022-05-13 18:26] LABS: Anisocytosis 1+; Hypochromia 1+; Lymphocytes 59 % (20-55); Microcytosis 1+; Platelet Estimate Normal; Total Cells Counted 100
[2022-05-13] MEDS ORDERED: ALBUTEROL/IPRATROPIUM 3 ML NEB RESP TX PRN (19:14)
[2022-05-13] MEDS ORDERED: ALBUTEROL 2.5 MG/3 ML NEB RESP TX PRN (19:14)
[2022-05-13] MEDS ORDERED: ONDANSETRON 4 MG/2 ML VIAL IV PRN (19:14)
[2022-05-13] MEDS ORDERED: MORPHINE 2 MG/1 ML SYRINGE IV PRN (19:14)
[2022-05-13] MEDS ORDERED: ACETAMINOPHEN 325 MG TABLET PO PRN (19:14)
[2022-05-13] MEDS ORDERED: NICOTINE 21 MG/24 HR PATCH TRANSDERM PRN (19:14)
[2022-05-13] MEDS ORDERED: SODIUM CHLORIDE 0.9% 1,000 ML IV SCH (19:30)
[2022-05-13 19:40] LABS: Risk Ratio 3.13
[2022-05-13 19:41] LABS: Albumin 3.3 G/DL (3.4-5.0); Bilirubin,Direct 0.67 MG/DL (0.0-0.20); Bilirubin,Indirect 2.3 MG/DL (0.0-1.0); Total Protein 6.1 G/DL (6.4-8.2)
[2022-05-13 20:19] LABS: ABG Base Excess -6.8 MMOL/L (-2.5-2.5); ABG PCO2 21.3 MM HG (35-48); ABG PH 7.454 (7.35-7.45); ABG TCO2 12.6 MMOL/L (23-27)
[2022-05-13] MEDS: cefTRIAXone 1,000 MG in SODIUM CHLORIDE 0.9% 100 ML IV SCH (23:27)
[2022-05-13 23:30] VITALS: BP 140/98
[2022-05-14] MEDS: APIXABAN 5 MG TABLET PO SCH ×3 (00:03→20:04)
[2022-05-14] MEDS: carvediloL 3.125 MG TABLET PO SCH ×3 (00:03→20:04)
[2022-05-14 03:43] LABS: Basophils % 0.4 % (0.0-0.8); Eosinophils % 0.4 % (0.00-10.9); Hematocrit 45.1 VOL% (42.0-52.0); Hemoglobin 13.8 GM/DL (14.0-18.0); Immature Granulocytes % 0.4 %; Immature Granulocytes Absolute 0.02 #; Lymphocytes # 3.2 10*3/uL (1.4-4.0); Lymphocytes % 59.4 % (21.2-54.2); Mean Corpuscular HGB Conc 30.6 GM/DL (32-36); Mean Corpuscular Volume 78.8 FL (87-102); Mean Platelet Volume 11.3 FL (9.6-12.0); Monocytes # 0.5 10*3/uL (0.11-0.8); Monocytes % 8.5 % (1.7-12.7); Neutrophils % 30.9 % (38.7-73.9); Platelet Count 279 T/CUMM (130-400); Red Blood Count 5.72 MC/CUMM (3.8-5.5); Red Cell Distribution Width 17.6 % (9.3-17.3); White Blood Count 5.42 T/CUMM (4-12)
[2022-05-14 04:01] LABS: Bilirubin,Total 2.5 MG/DL (0.20-1.00); Calcium 8.4 MG/DL (8.5-10.1); Potassium 4.7 MMOL/L (3.5-5.1); Total Protein 5.3 G/DL (6.4-8.2)
[2022-05-14 04:09] LABS: Hypochromia Slight; Lymphocytes 60 % (20-55); Microcytosis Slight; Platelet Estimate Adequate; Total Cells Counted 100
[2022-05-14 04:39] LABS: Hepatitis B Core IgM Quant 0.08 Index; Hepatitis B Surface Ag Quant < 0.10 Index; Hepatitis B Surface Ag Result Non-Reactive (NonReactive); Hepatitis C Virus Ab Quant < 0.02 Index; Hepatitis C Virus Ab Result Non-Reactive (NonReactive)
[2022-05-14] MEDS: ASCORBIC ACID 500 MG TABLET PO SCH (08:37)
[2022-05-14] MEDS: PANTOPRAZOLE 40 MG TABLET PO SCH (08:37)
[2022-05-14] MEDS: ASPIRIN EC 81 MG TABLET PO SCH (08:38)
[2022-05-14] MEDS ORDERED: DIGOXIN 0.5 MG/2 ML AMP IV SCH (09:00)
[2022-05-14] MEDS ORDERED: DIGOXIN 0.5 MG/2 ML AMP IV ONE ×2 (09:00→19:00)
[2022-05-14] MEDS: cefTRIAXone 1,000 MG in SODIUM CHLORIDE 0.9% 100 ML IV SCH (20:04)
[2022-05-14] MEDS ORDERED: ATORVASTATIN 10 MG TABLET PO SCH (21:00)
[2022-05-15 04:56] LABS: Basophils % 0.6 % (0.0-0.8); Eosinophils % 0.9 % (0.00-10.9); Hemoglobin 13.7 GM/DL (14.0-18.0); Lymphocytes # 1.7 10*3/uL (1.4-4.0); Lymphocytes % 51.2 % (21.2-54.2); Mean Corpuscular HGB Conc 30.4 GM/DL (32-36); Mean Corpuscular Volume 80.1 FL (87-102); Mean Platelet Volume 11.3 FL (9.6-12.0); Monocytes # 0.3 10*3/uL (0.11-0.8); Monocytes % 9.2 % (1.7-12.7); Neutrophils % 38.1 % (38.7-73.9); Platelet Count 245 T/CUMM (130-400); Red Blood Count 5.62 MC/CUMM (3.8-5.5); Red Cell Distribution Width 16.9 % (9.3-17.3); White Blood Count 3.38 T/CUMM (4-12)
[2022-05-15 05:25] LABS: Albumin 2.6 G/DL (3.4-5.0); Bilirubin,Total 1.5 MG/DL (0.20-1.00); Calcium 7.6 MG/DL (8.5-10.1); High Sensitive Troponin I* 109.4 ng/L (0-78); Osmolality,Calculated 296.7 MOS/KG (273-304); Potassium 3.9 MMOL/L (3.5-5.1); Total Protein 4.9 G/DL (6.4-8.2)
[2022-05-15 05:29] LABS: Eosinophils 1 % (0-10); Lymphocytes 51 % (20-55); Platelet Estimate Adequate; Total Cells Counted 100
[2022-05-15] MEDS: ASCORBIC ACID 500 MG TABLET PO SCH (08:06)
[2022-05-15] MEDS: ASPIRIN EC 81 MG TABLET PO SCH (08:06)
[2022-05-15] MEDS: APIXABAN 5 MG TABLET PO SCH (08:06)
[2022-05-15] MEDS: carvediloL 3.125 MG TABLET PO SCH (08:07)
[2022-05-15] MEDS: PANTOPRAZOLE 40 MG TABLET PO SCH (08:07)
[2022-05-15] MEDS ORDERED: DIGOXIN 0.25 MG TABLET PO SCH (09:00)
== END 2022-05-15 12:20 | disposition home or self-care (01) | DRG 308 ==
LOC: N.ED 16:34 → SUATTDRO 18:35 → N.EDINP 18:35 → N.ICU 23:38
PROVIDERS: ADMIT Internal Medicine; ATTEND Family Medicine